=== PATIENT | female | born 1945 | race Caucasian/White ===

== ENCOUNTER → 2020-08-21 | Outpatient (CLI) | payer OTHER ==
[~2020-08-21] MED LIST: ATIVAN0.5 MG PO; DILANTIN100 MG PO; LEVOTHYROXINE 0.15MG PO; LO-DOSE ASPIRIN81 M1 PO
--- NOTE | 2020-08-21 14:20 | 2DMMODE ---
[facility] [place] [address] 2 D/M-MODE ECHOCARDIOGRAM Name: PITER BORGES Room #: REG MARLENY IrmaIrma#: [id number] Admission: 08/21/20 Attend Phys: Daria Castro MD Discharge: Date of : 45 Report #: [id number] THIS REPORT FOR: cc: Daria Castro MD, Linda L. MD Santiago, Patrick MD [facility] ~ APPROVED REPORT Study performed: 08/21/2020 13:44:29 EXAM: Comprehensive 2D, Doppler, and color-flow Echocardiogram Patient Location: Out-Patient Status: routine BSA: 1.36 HR: 95 bpm Other Information Study Quality: Good Indications History of mitral valve prolapse. Mitral regurgitation. 2D Dimensions RVDd: 36.54 mm IVSd: 10.39 (7-11mm) LVOT Diam: 20.45 (18-24mm) LVDd: 41.54 mm PWd: 10.39 (7-11mm) LVDs: 30.65 (25-40mm) Aortic Root: 36.28 mm Volumes Left Atrial Volume (Systole) Single Plane 4CH: 33.45 mL Single Plane 2CH: 30.59 mL LA ESV Index: 26.00 mL/m2 Aortic Valve AoV Peak Blake.: 1.32 m/s AO Peak Gr.: 6.92 mmHg LVOT Max P.54 mmHg LVOT Max V: 0.94 m/s ESTELA Vmax: 2.35 cm2 Mitral Valve [facility] [address] [place] [address] 2 D/M-MODE ECHOCARDIOGRAM Name: PITER BORGES CAROLBertin Room #: REG [facility].#: [id number] Admission: 08/21/20 Attend Phys: Sumaya Naylor Discharge: Date of : 45 Report #: [id number] E/A Ratio: 0.6 MV Decel. Time: 160.47 ms MV E Max Blake.: 0.62 m/s MV A Blake.: 0.98 m/s MV PHT: 46.54 ms IVRT: 80.74 ms Pulmonary Valve PV Peak Blake.: 0.84 m/s PV Peak Gr.: 2.84 mmHg Pulmonary Vein P Vein S: 0.77 m/s P Vein A: 0.35 m/s P Vein D: 0.57 m/s P Vein A Dur.: 134.9 msec P Vein S/D Ratio: 1.35 Tricuspid Valve TR Peak Blake.: 3.23 m/s RAP Estimate: 10.00 mmHg TR Peak Gr.: 42.00 mmHg PA Pressure: 52.00 mmHg Left Ventricle The left ventricle is normal size. There is normal LV segmental wall motion. There is normal left ventricular wall thickness. Left ventricular systolic function is normal. LVEF is 55%. Mild diastolic dysfunction is present (impaired relaxation pattern). Right Ventricle The right ventricle is normal size. The right ventricular systolic function is normal. Atria The left atrium size is normal. The right atrium size is normal. Aortic Valve The aortic valve is normal in structure. No aortic regurgitation is present. There is no aortic valvular stenosis. Mitral Valve Mitral valve leaflets are mildly thickened. Mild mitral annular calcification. Moderate mitral regurgitation. No evidence of mitral valve stenosis. Tricuspid Valve The tricuspid valve is normal in structure. Moderate tricuspid regurgitation. Estimated PAP is 50mmHg. [facility] [place] [address] 2 D/M-MODE ECHOCARDIOGRAM Name: KATERINAJUAN MESTER FERNANDINA BEACHBertin Room #: REG [facility]#: [id number] Admission: 08/21/20 Attend Phys: Sumaya Naylor Discharge: Date of : 45 Report #: [id number] Pulmonic Valve Pulmonic valve is not well visualized. Trace pulmonic regurgitation. Great Vessels The aortic root is normal in size. Ascending aorta is not well visualized. IVC is dilated and collapses >50% with inspiration. Pericardium There is no pericardial effusion. <Conclusion> Normal left ventricle size/wall thickness Ejection fraction 55% Grade 1 diastolic dysfunction Normal right ventricular size/function Normal atrial size Color-flow Doppler study was performed of the aortic/mitral/tricuspid/pulmonary valve Mild mitral valve calcification, somewhat myxomatous Moderate mitral valve insufficiency Moderate tricuspid valve insufficiency Pulmonary systolic pressure estimated at 50 mmHg No pericardial effusion <ELECTRONICALLY SIGNED> By: Francisco Javier Carranza MD, FACC 08/21/201419 19 19 Francisco Javier Carranza MD, FACC /INF
== END ==
LOC: CV → CAT 15:51 → CV 15:55
PROVIDERS: ATTEND Internal Medicine
DX: I08.1 Rheumatic disorders of both mitral and tricuspid valves (principal); I65.23 Occlusion and stenosis of bilateral carotid arteries

== ENCOUNTER → 2020-08-21 | Outpatient (CLI) | payer OTHER | LOC: CAT 13:26 | PROVIDERS: ATTEND Internal Medicine | DX: Z13.6 Encounter for screening for cardiovascular disorders (principal); I25.10 Atherosclerotic heart disease of native coronary artery without angina pectoris; E78.00 Pure hypercholesterolemia, unspecified ==